=== PATIENT | female | born 2000 ===

== ENCOUNTER 2023-08-19 12:01 | Emergency (ER) | payer OTHER, SELFPAY ==
[2023-08-19] VITALS (11 sets, daily range): BP systolic 118–136; BP diastolic 68–77; PULSE 64–103; RESP 17; TEMP 36.6; O2SAT 94–96; BMI 28.6
--- NOTE | 2023-08-19 12:21 | DI.CT.S_ITS ---
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 Additional oblique axial 3.0 mm sections acquired through the pharynx. 3 mm thick coronal and sagittal reformats were generated. For radiation dose reduction, the following was used: automated exposure control. COMPARISON: None. FINDINGS: Image quality: Excellent. Lymph nodes: Prominent left level 2 lymph nodes are seen measures up to 1.4 cm in short axis diameter series 2, image 33. Vessels: Visualized vasculature appears patent. Neck spaces: Asymmetrically enlarged left lingual tonsil with narrowing of oral pharyngeal airway. Large left tonsillar abscess collection measures up to 2.3 x 2.6 x 2.8 cm in size series 2, image 27 and series 5, image 39. Rest of the airway is patent. No other soft tissue mass or drainable fluid collection. Rest of the airway is patent. No other drainable fluid collection or soft tissue mass is seen. Glands: The parotid and submandibular glands appear normal. Thyroid gland is within normal limits. Miscellaneous: Visualized brain and orbits appear normal. Lung apices appear clear. Superficial soft tissues appear normal. Bones: No suspicious bony lesions. Visualized sinuses and mastoids appear unremarkable. IMPRESSION: 1. Left-sided tonsillitis with large left tonsillar abscess collection as described above. 2. Narrowing of left oral pharyngeal airway at this level. 3. Enlarged left level 2 neck soft tissue lymph nodes likely reactive in nature. Dictated by: Caden Oden M.D. on 08/19/2023 at 13:09 Approved by: Caden Oden M.D. on 08/19/2023 at 13:12
--- NOTE | 2023-08-19 12:25 | ED.GENADULT ---
HPI - General Adult General Chief complaint: Upper Respiratory Symptoms Stated complaint: throat swelling, diff talking Time Seen by Provider: 08/19/23 12:14 Source: patient Mode of arrival: Ambulatory History of Present Illness HPI narrative: 22-year-old otherwise healthy for a left-sided sore throat/tonsil infection. States her symptoms actually started approximately 1 week ago. Yesterday she was seen at an outside facility. Has had multiple negative strep test. When she was seen yesterday she stated that there was no imaging studies done. There was an attempt at a drainage where they poked the back of her throat 3 separate times without any return of purulent material. She was not given any steroids. Was given IV antibiotics and sent home on oral antibiotics. She was here because of continued discomfort and painful swallowing. Related Data Home Medications Medication Instructions Recorded Confirmed amoxicillin 875 mg-potassium 1 tab PO BID 08/19/23 08/19/23 clavulanate 125 mg tablet Allergies Allergy/AdvReac Type Severity Reaction Status Date / Time No Known Drug Allergies Allergy Verified 08/19/23 12:11 Review of Systems Review of Systems Narrative: See HPI Patient History Social History Smoking Status: Never smoker Smoking Status: Never smoker alcohol intake frequency: a few times a month Substance Use Type: does not use Exam Initial Vital Signs Initial Vital Signs: Vital Signs Temperature 98 F 08/19/23 12:06 Pulse Rate 94 H 08/19/23 12:06 Respiratory Rate 17 08/19/23 12:06 Blood Pressure 123/71 08/19/23 12:06 Pulse Oximetry 95 08/19/23 12:06 Oxygen Delivery Method Room Air 08/19/23 12:06 Const General: cooperative, comfortable and No ill appearing HENAL Ears: hearing grossly normal bilaterally Mouth: lip normal, tongue normal and moist mucous membranes Throat: uvula midline, abnormal tonsil on the left erythema and hypertrophy and posterior oropharynx abnormal Neck Lymphatic: No lymphadenopathy Resp Effort & Inspection: normal respiratory effort Auscultation: clear to auscultation bilaterally Skin General: no rashes or lesions noted Extrem General: normal to inspection and capillary refill normal Course Orders Ordered: ED Orders 08/19/23 12:21 CT soft tissue neck w con Stat 08/19/23 12:27 Basic Metabolic Panel Stat Complete Blood Count AUTO DIFF Stat Monotest Stat 08/19/23 15:13 Consult to Physician Stat Discontinued Medications Dexamethasone (Dexamethasone 4 Mg/Ml Vial) 16 mg IV NOW ONE Stop: 08/19/23 12:22 Last Admin: 08/19/23 12:36 Dose: 16 mg Documented By: STAR Sodium Chloride (Normal Saline 0.9%) 1,000 mls @ 1,000 mls/hr IV BOLUS ONE Stop: 08/19/23 13:20 Last Infusion: 08/19/23 13:59 Dose: Infused Documented By: Infusion: 08/19/23 12:53 Dose: 1,000 mls/hr Documented By: Infusion: 08/19/23 12:40 Dose: 0 mls/hr Documented By: Admin: 08/19/23 12:36 Dose: 1,000 mls/hr Documented By: STAR Clindamycin Phosphate (Cleocin) 900 mg in 50 mls @ 50 mls/hr IV NOW ONE Stop: 08/19/23 16:03 Last Infusion: 08/19/23 16:30 Dose: Infused Documented By: Admin: 08/19/23 15:16 Dose: 50 mls/hr Documented By: STAR Ketorolac Tromethamine (Ketorolac 30 Mg/Ml Vial) 30 mg IV NOW ONE Stop: 08/19/23 12:22 Last Admin: 08/19/23 12:36 Dose: 30 mg Documented By: STAR Lidocaine HCl (Lidocaine Viscous 2% 15 Ml Solution) 15 ml PO NOW ONE Stop: 08/19/23 14:16 Last Admin: 08/19/23 14:22 Dose: 15 ml Documented By: STAR Morphine Sulfate (Morphine 4 Mg/Ml Inj) 4 mg IV NOW ONE Stop: 08/19/23 13:01 Last Admin: 08/19/23 13:07 Dose: 4 mg Documented By: STAR Morphine Sulfate (Morphine 4 Mg/Ml Inj) 4 mg IV NOW ONE Stop: 08/19/23 15:04 Last Admin: 08/19/23 15:12 Dose: 4 mg Documented By: STAR Ondansetron HCl (Ondansetron 4 Mg/2 Ml Inj) 4 mg IV NOW ONE Stop: 08/19/23 12:29 Last Admin: 08/19/23 12:36 Dose: 4 mg Documented By: STAR Vital Signs Vital signs: Vital Signs - 8 hr 08/19/23 12:06 08/19/23 12:54 08/19/23 12:55 Temperature 98 F Pulse Rate 94 H 102 H Respiratory Rate 17 Blood Pressure 123/71 136/77 Pulse Oximetry 95 95 Oxygen Delivery Method Room Air 08/19/23 12:55 08/19/23 13:00 08/19/23 13:00 Temperature Pulse Rate 103 H 92 H Respiratory Rate Blood Pressure 128/71 Pulse Oximetry 95 96 Oxygen Delivery Method Room Air 08/19/23 13:30 08/19/23 13:30 08/19/23 14:49 Temperature Pulse Rate 86 79 Respiratory Rate Blood Pressure 119/71 Pulse Oximetry 95 96 Oxygen Delivery Method Room Air 08/19/23 14:51 08/19/23 14:51 08/19/23 15:00 Temperature Pulse Rate 84 Respiratory Rate Blood Pressure 121/76 118/72 Pulse Oximetry 95 Oxygen Delivery Method 08/19/23 15:00 08/19/23 15:30 08/19/23 16:00 Temperature Pulse Rate 75 64 Respiratory Rate Blood Pressure 118/68 Pulse Oximetry 95 94 Oxygen Delivery Method Room Air 08/19/23 16:00 Temperature Pulse Rate 71 Respiratory Rate Blood Pressure Pulse Oximetry 94 Oxygen Delivery Method Room Air Medical Decision Making Lab Data Lab results reviewed: Yes I reviewed the patient's lab results. 08/19/23 12:27 08/19/23 12:27 Labs: Lab Results 08/19/23 Range/Units 12:27 WBC 14.1 H (4.5-11.0) X10^3/uL RBC 4.35 (4.0-5.2) X10^6/uL Hgb 13.4 (12.0-16.0) g/dL Hct 39.1 (36-46) % MCV 89.7 (80-100) fL MCH 30.9 (26-34) PG MCHC 34.4 (30-36) % RDW 13.1 (11.6-14.8) % Plt Count 418 H (150-400) X10^3/uL Neut % (Auto) 77.1 H (50-75) % Lymph % (Auto) 11.3 L (25-40) % [place] % (Auto) 10.1 (3-14) % Eos % (Auto) 1.3 L (2-4) % Baso % (Auto) 0.2 (0-2) % Neut # (Auto) 69344 H (5195-2391) /uL Lymph # (Auto) 1600 (7115-8022) /uL [place] # (Auto) 1400 H (0-900) /uL Eos # (Auto) 200 (0-450) /uL Baso # (Auto) 0 (0-100) /uL Sodium 137 (137-145) mmol/L Potassium 4.1 (3.4-5.1) mmol/L Chloride 105 (98-107) mmol/L Carbon Dioxide 29 (22-32) mmol/L BUN 8 (7-17) mg/dL Creatinine 0.66 (0.52-1.04) mg/dL Estimated GFR > 60 (>60) mL/min BUN/Creatinine Ratio 12.1 (6-22) Glucose 125 H (70-100) mg/dL Calcium 9.0 (8.4-10.2) mg/dL Monoscreen Negative (Negative) Imaging Data CT sodt tissue: Radiologist's Impression: PROCEDURE: CT SOFT TISSUE NECK W CON 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 Additional oblique axial 3.0 mm sections acquired through the pharynx. 3 mm thick coronal and sagittal reformats were generated. For radiation dose reduction, the following was used: automated exposure control. COMPARISON: None. FINDINGS: Image quality: Excellent. Lymph nodes: Prominent left level 2 lymph nodes are seen measures up to 1.4 cm in short axis diameter series 2, image 33. Vessels: Visualized vasculature appears patent. Neck spaces: Asymmetrically enlarged left lingual tonsil with narrowing of oral pharyngeal airway. Large left tonsillar abscess collection measures up to 2.3 x 2.6 x 2.8 cm in size series 2, image 27 and series 5, image 39. Rest of the airway is patent. No other soft tissue mass or drainable fluid collection. Rest of the airway is patent. No other drainable fluid collection or soft tissue mass is seen. Glands: The parotid and submandibular glands appear normal. Thyroid gland is within normal limits. Miscellaneous: Visualized brain and orbits appear normal. Lung apices appear clear. Superficial soft tissues appear normal. Bones: No suspicious bony lesions. Visualized sinuses and mastoids appear unremarkable. IMPRESSION: 1. Left-sided tonsillitis with large left tonsillar abscess collection as described above. 2. Narrowing of left oral pharyngeal airway at this level. 3. Enlarged left level 2 neck soft tissue lymph nodes likely reactive in nature. MDM Narrative Medical decision making narrative: Patient has history and physical exam and labs and CT scan that is consistent with a left peritonsillar abscess. Attempted to drain the peritonsillar abscess here in the emergency department however we were unsuccessful. I discussed the case with Dr. Crawley on-call for ENT who came to the emergency department. He performed an incision and drainage and was able to drain purulent material. Patient has no airway compromise. 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 She was already received steroids. I suspect now that the abscess has been drained her symptoms will improve. She was given return precautions and follow-up instructions. She expressed understanding and agreement. Discharge Plan Departure Patient Disposition: Home Clinical Impression: Peritonsillar abscess Instructions: DI for Peritonsillar Abscess -- Adult Activity Restrictions/Additional Instructions: You can take Tylenol/ibuprofen for any discomfort or fevers. I would fill the antibiotics that you were prescribed yesterday and take them as directed. Be sure that your increasing your fluid intake. Return to the emergency department for new or worsening symptoms. Prescriptions: No Action amoxicillin-pot clavulanate [Augmentin] 875-125 mg Tablet 1 tab PO BID Stand Alone Forms: Patient Portal/API
[2023-08-19 12:36] LABS: Add Manual Diff / Slide Review NO; Basophils Absolute Auto 0 /uL (0-100); Basophils Percent Auto 0.2 % (0-2); Eosinophils Absolute Auto 200 /uL (0-450); Eosinophils Percent Auto 1.3 % (2-4); Hematocrit 39.1 % (36-46); Hemoglobin 13.4 g/dL (12.0-16.0); Lymphocytes Absolute Auto 1600 /uL (1100-4500); Lymphocytes Percent Auto 11.3 % (25-40); Mean Corpuscular HGB Conc 34.4 % (30-36); Mean Corpuscular Hemoglobin 30.9 PG (26-34); Mean Corpuscular Volume 89.7 fL (80-100); Monocytes Absolute Auto 1400 /uL (0-900); Monocytes Percent Auto 10.1 % (3-14); Neutrophils Absolute Auto 10900 /uL (1500-7000); Neutrophils Percent Auto 77.1 % (50-75); Platelet Count 418 X10^3/uL (150-400); Red Blood Cell Count 4.35 X10^6/uL (4.0-5.2); Red Cell Distribution Width 13.1 % (11.6-14.8); White Blood Cell Count 14.1 X10^3/uL (4.5-11.0)
[2023-08-19] MEDS: ONDANSETRON 4 MG/2 ML INJ IV (12:36)
[2023-08-19] MEDS: KETOROLAC 30 MG/ML VIAL IV (12:36)
[2023-08-19] MEDS: SODIUM CHLORIDE 0.9% 1,000 ML 1000 ML IV (12:36)
[2023-08-19] MEDS: DEXAMETHASONE 4 MG/ML VIAL 16 MG IV (12:36)
[2023-08-19 12:38] LABS: Monotest Negative (Negative)
[2023-08-19 12:57] LABS: BUN Creatinine Ratio 12.1 (6-22); Blood Urea Nitrogen 8 mg/dL (7-17); Carbon Dioxide 29 mmol/L (22-32); Chloride 105 mmol/L (98-107); Estimated Glomerular Filt Rate > 60 mL/min (>60); Glucose 125 mg/dL (70-100); HEMOLYSIS < 15 (0-50); Potassium 4.1 mmol/L (3.4-5.1); Sodium 137 mmol/L (137-145)
[2023-08-19] MEDS: MORPHINE 4 MG/ML INJ IV ×2 (13:07→15:12)
[2023-08-19] MEDS: LIDOCAINE VISCOUS 2% 15 ML SOLUTION PO (14:22)
[2023-08-19] MEDS: CLINDAMYCIN 900 MG/50 ML PIGGYBACK 50 MG IV (15:16)
--- NOTE | 2023-08-19 17:01 | P.OP_ITS ---
Operative Date/Time/Diagnoses Date of procedure: 08/19/23 Time of procedure: 16:15 Pre-op diagnosis: Left peritonsillar abscess, throat pain, acute tonsillitis Post-op diagnosis: same Procedure & Clinicians Procedure: Incision and drainage left peritonsillar abscess Same procedure as scheduled: Yes Indications: 22-year-old female with the above diagnosis incompletely managed with medical therapy presents for the above procedure. Following discussion of the material risks benefits complications and alternatives, she elected to proceed. Surgeon: Severo Crawley Click Yes if Unassisted: Yes Anesthesia Type: Local Operative Notes Findings: Several cc holli purulence expressed and suctioned from the greater than 2 cm abscess cavity, completely grossly evacuated. Incision was made more lateral to prior outside attempts at needle aspiration. Estimated Blood Loss (mL): 2 Procedure in detail: Following verbal consent, I infiltrated the left soft palate lateral and superior to the tonsil with 2% lidocaine 1 100,000 epinephrine. Fifteen blade incised through the mucosa and muscle into the abscess cavity which was widened bluntly and sharply incompletely evacuated of purulence. Patient tolerated the procedure well without known complication. Complications: none Post-operative Condition: stable Plan for aftercare: Push fluids, Augmentin, call with any worsening, follow-up if desired at any p oint.
--- NOTE | 2023-08-19 17:04 | P.CONS_ITS ---
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 Strep negative times to urgent care visits, symptoms worsened leading to [place] ER visit last night, attempted needle aspiration by report, antibiotics given, possibly no steroids. Symptoms progressed, Dr. Shields. Attempted needle aspiration but unsuccessful. CT neck with contrast reviewed shows a 2.8 cm left lateral and somewhat deep peritonsillar abscess. She complains of throat pain but no airway issues no trouble in the right side no fever. White count is elevated. No other ENT complaints. Meds Home Medications and Allergies Home Medications Medication Instructions Recorded Confirmed Type amoxicillin 875 mg-potassium 1 tab PO BID 08/19/23 08/19/23 History clavulanate 125 mg tablet Allergies Allergy/AdvReac Type Severity Reaction Status Date / Time No Known Drug Allergies Allergy Verified 08/19/23 12:11 Review of Systems Review of Systems Narrative: Negative except as listed in the HPI Exam Vital Signs (past 8 hours): - 08/19/23 12:06 08/19/23 12:54 08/19/23 12:55 Temperature 98 F Pulse Rate 94 H 102 H Respiratory Rate 17 Blood Pressure 123/71 136/77 Pulse Oximetry 95 95 Oxygen Delivery Method Room Air 08/19/23 12:55 08/19/23 13:00 08/19/23 13:00 Temperature Pulse Rate 103 H 92 H Respiratory Rate Blood Pressure 128/71 Pulse Oximetry 95 96 Oxygen Delivery Method Room Air 08/19/23 13:30 08/19/23 13:30 08/19/23 14:49 Temperature Pulse Rate 86 79 Respiratory Rate Blood Pressure 119/71 Pulse Oximetry 95 96 Oxygen Delivery Method Room Air 08/19/23 14:51 08/19/23 14:51 08/19/23 15:00 Temperature Pulse Rate 84 Respiratory Rate Blood Pressure 121/76 118/72 Pulse Oximetry 95 Oxygen Delivery Method 08/19/23 15:00 08/19/23 15:30 08/19/23 16:00 Temperature Pulse Rate 75 64 Respiratory Rate Blood Pressure 118/68 Pulse Oximetry 95 94 Oxygen Delivery Method Room Air 08/19/23 16:00 08/19/23 16:30 Temperature Pulse Rate 71 77 Respiratory Rate Blood Pressure Pulse Oximetry 94 96 Oxygen Delivery Method Room Air Room Air Oxygen Delivery Method Room Air Narrative Exam Narrative: Well-developed well-nourished female in no acute distress. Somewhat stoic but cooperative. External ears normal external nose is normal oral cavity, mild trismus at most, significant left soft palate and tonsillar swelling, uvula deviated to the right, right 2+ tonsil. Left soft palate is ecchymotic and tender, slightly fluctuant laterally. Neck soft and mildly tender left submandibular area but no palpable masses Objective Labs 08/19/23 12:27 08/19/23 12:27 Labs: Laboratory Results - last 24 hr 08/19/23 12:27 WBC 14.1 H RBC 4.35 Hgb 13.4 Hct 39.1 MCV 89.7 MCH 30.9 MCHC 34.4 RDW 13.1 Plt Count 418 H Neut % (Auto) 77.1 H Lymph % (Auto) 11.3 L [place] % (Auto) 10.1 Eos % (Auto) 1.3 L Baso % (Auto) 0.2 Neut # (Auto) 52785 H Lymph # (Auto) 1600 [place] # (Auto) 1400 H Eos # (Auto) 200 Baso # (Auto) 0 Sodium 137 Potassium 4.1 Chloride 105 Carbon Dioxide 29 BUN 8 Creatinine 0.66 Estimated GFR > 60 BUN/Creatinine Ratio 12.1 Glucose 125 H Calcium 9.0 Monoscreen Negative PFSH Tobacco & Substance Use Smoking Status: Never smoker Assessment & Plan Assessment & Plan narrative: Assessment: Left peritonsillar abscess, throat pain, tonsillar hypertrophy Plan: Patient elected to proceed with incision and drainage under local, successful, tolerated well. Complete the oral antibiotic, push fluids 4 L daily, call with any worsening. I offered follow-up if she desires to ensure complete healing. In some cases patients elect to proceed with elective tonsillectomy in the future to prevent recurrence but should be a low probability overall. The patient and her and Dr. Briceño agree with the plan and understand. Time-Based Coding :: [TOTAL MINUTES] spent with patient and on the chart (including review of chart, obtaining history, exam, reviewing outside data, placing orders, documenting exam and treatment plan, and counseling patient) on [DATE].
== END 2023-08-19 16:58 | disposition home or self-care (01) ==
PROVIDERS: Emergency Provider Emergency Medicine
DX: J36 Peritonsillar abscess (principal)
CPT/HCPCS: 36415; 70491; 80048; 85025; 86318; 96361; 96365; 96375; 96376; 99284; J1100; J1885; J2270; J2405; Q9967